=== PATIENT | female | born 1960 ===

== ENCOUNTER 2018-04-20 14:33 | Outpatient (CLI) | payer OTHER ==
[~2018-04-20 14:33] MED LIST: Gadobenate Dimeglumine 529 MG/1 ML (20ML VIAL) ONE
--- NOTE | 2018-04-20 17:44 | RAD ---
LUMBAR SPINE 4 VIEWS: Date: 04/20/18 HISTORY: Lumbar radiculopathy. Low back pain. COMPARISON: None. FINDINGS: Surgical clips are present along the right lower hemiabdomen. There appears to be a phlebolith in the left upper quadrant of the abdomen. Degenerative changes at L4 and L5. No acute fracture or malalignment. Moderate narrowing L5-S1 disc s paces. No significant listhesis with flexion or extension. No significant translation with flexion or extens ion. IMPRESSION: No significant translation with flexion or extension. POS: RADU
--- NOTE | 2018-04-20 18:00 | MRI ---
MRI LUMBAR SPINE WITH AND WITHOUT IV CONTRAST: Date: 04-20-18 History: Lumbar radiculopathy. Herniated nucleus paposis. Low back pain. History of prior low back sweeney rgery on 11-06-17. Patient continues to have low back pain and bilateral hip pain. Comparison: None available. FINDINGS: There is a subcentimeter increased T2 weighted signal intensity structure seen in the posteromedial a spect of the right hepatic lobe which is difficult to characterize but probably represents a small cy st. It is not well visualized on the post enhanced images for accurate assessment. There is left hydronephrosis with greater degree of dilatation of the left renal pelvis. Retroperitoneal structures demonstrate a normal MRI appearance. The conus medullaris is normal in appearance and terminates at the level of the L1 vertebral body. There is a moderate area of increased T1 and T2 weighted signal intensity seen in the L2 vertebral olivia dy which measures 1.2 cm with a few additional tiny subcentimeter increased T2 weighted signal intens ity foci scattered within the lumbar vertebral bodies and sacrum, likely representing small hemangiom as. Vertebral body heights are within normal limits. There is no edema seen on fluid sensitive sequences. There are post-surgical changes related to laminectomy defects in the lower lumbar spine. T11-12: There is a disc osteophyte complex with central disc protrusion. This does narrow the ventral subarachnoid space with encroachment on the anterior aspect of the spinal cord. Neural foramina are patent. T12-L1: There is no disc bulge or disc herniation. Central spinal canal and neural foramina are paten t. L1-2: There is no disc bulge or disc herniation. Central spinal canal and neural foramina are patent. L2-3: There is no significant disc bulge or disc herniation. Central spinal canal and neural foramina are patent. L3-4: There is a mild broad based disc osteophyte complex which results in mild narrowing of the cent ral spinal canal. The neural foramina are patent at this level. L4-5: There is mild disc osteophyte complex and mild facet degenerative changes. There is mild narrow ing of the central spinal canal. There is mild encroachment on the inferior aspect of each neural for amen. There is enhancing material seen posterior to the central canal at the level of the laminectomy defect which abuts the posterior aspect of the thecal sac and is likely related to scarring. No abno rmal soft tissue signal intensity or enhancement is seen extending along lateral aspect of the thecal sac at this level. L5-S1: There is a right central/paracentral disc protrusion/extrusion with AP dimensions measuring ap proximately 11 mm. This does contact and displaces the traversing right S1 nerve root posteriorly. Co rrelation for right S1 radiculopathy is recommended. There is no significant narrowing of either neur al foramen at this level. Laminectomy defect is seen posteriorly with enhancing soft tissues posterio r at the level of the thecal sac and posterior at this level, likely related to scarring. Again, no a bnormal enhancement is seen extending along either side of the thecal sac. There is no evidence of a fluid collection. On sagittal imaging there is incomplete visualization of a large cystic appearing structure involving the medial aspect of the liver. Further evaluation with ultrasound is recommended. IMPRESSION: 1. Incomplete visualization of cystic lesions within the liver, one of which is very large in size bu t incompletely imaged and measures approximately 9.8 cm in craniocaudal dimensions. There is also sug gestion of hydronephrosis involving the left kidney with greater prominence of the extrarenal pelvis. Abdominal ultrasound is recommended for further evaluation of the findings within the liver and left kidney. 2. Degenerative changes changes in the lower lumbar spine. There is a right paracentral disc protrusi on/extrusion at the L5-S1 level which contacts and posteriorly displaces the traversing right S1 nerv e root. Correlation for right S1 radiculopathy is recommended. 3. Post-operative changes of the lower lumbar spine with laminectomy defects seen. There is scar tiss ue noted posterior to the laminectomy defects. 4. Disc degenerative changes at the T11-12 level. POS: RADU
== END 2018-04-20 14:34 | disposition home or self-care (01) ==
LOC: BICMRI 14:33
PROVIDERS: ATTEND Neurological Surgery
DX: M51.16 Intervertebral disc disorders with radiculopathy, lumbar region (principal); M47.26 Other spondylosis with radiculopathy, lumbar region; M51.17 Intervertebral disc disorders with radiculopathy, lumbosacral region; M47.814 Spondylosis without myelopathy or radiculopathy, thoracic region; Z98.890 Other specified postprocedural states; K76.89 Other specified diseases of liver
CPT/HCPCS: 72110; 72158; A9577

== ENCOUNTER 2018-07-15 14:57 | Outpatient (CLI) | payer OTHER ==
--- NOTE | 2018-07-15 16:13 | MRI ---
Exam: MRI cervical spine without contrast HISTORY: Cervical spondylolysis. Cervical pain radiating to both shoulders.. COMPARISON: None FINDINGS: Straightening of normal cervical lordosis. Appropriate T1 marrow signal intensity of the cervical ve rtebra. Cervical spine vertebral body height is maintained. No fracture. No significant STIR hyperintensity to suggest vertebral body edema or ligamentous injury Visualized brain parenchyma, cervical medullary junction, cervical cord and the upper thoracic cord a re normal size and signal intensity C2-C3: Adequate disc hydration. No significant central canal stenosis or neural foraminal narrowing C3-C4: Central disc protrusion abuts the thecal sac. Mild central canal stenosis. Minimal right rehan inal narrowing due to uncovertebral hypertrophy. Left neural foramen is patent. C4-C5: Moderate loss of disc space height. Broad-based disc osteophyte complex abuts the thecal sac. There is mass effect and deformity of the cervical cord. Mild to moderate central canal stenosis. No cord signal abnormality. Mild right neural foraminal narrowing. Left neural foramen is patent C5-C6: Broad-based discussed by complex abuts the thecal sac. Ventral subarachnoid space is effaced. Minimal mass effect upon the cervical cord. Mild central canal stenosis. Moderate bilateral neural foraminal narrowing. C6-C7: Desiccation with moderate loss of disc space height. There is a central, right paracentral dis cussed by complex abuts the thecal sac. Mild central canal stenosis. Mild bilateral neural foraminal narrowing. C7-T1: No significant central canal stenosis. Neural foramina are patent bilaterally IMPRESSION: 1. [id number] central canal stenosis at C4-C5. 2. Straightening of normal cervical lordosis which may be due to patient position or muscle spasm. 3. Moderate loss of disc space height at C4-C5 and C6-C7. 4. Varying degrees of neural foraminal narrowing as described above. Moderate bilateral foraminal perry rowing at C5-6 and
== END 2018-07-15 14:58 | disposition home or self-care (01) ==
LOC: BICMRI 14:57
PROVIDERS: ATTEND Neurological Surgery
DX: M47.812 Spondylosis without myelopathy or radiculopathy, cervical region (principal); M48.02 Spinal stenosis, cervical region
CPT/HCPCS: 72141